=== PATIENT | female | born 1970 ===

== ENCOUNTER 2025-06-27 16:50 | Day surgery (SDC) | payer OTHER ==
[2025-06-23 12:20] VITALS: BP 121/75
[2025-06-23 12:52] LABS: BASO % 0.7 % (0.1-1.2); EOS # 0.35 (0.04-0.54); EOS % 5.7 % (0.7-7.0); LYMPH # 1.96 (1.18-3.74); LYMPH % 32.2 % (19.3-53.1); MEAN PLATELET VOLUME 10.70 fl (9.4-12.4); MONO # 0.52 (0.24-0.82); MONO % 8.5 % (4.7-12.5); NEUT # 3.21 (1.56-6.13); NEUT % 52.7 % (34.0-71.1); RED CELL DISTRIBUTION WIDTH 12.9 % (11.6-14.4)
[2025-06-23 12:57] LABS: URINE BACTERIA 313.0 uL (0.0-1933); URINE EPITHELIAL CELLS 25.2 uL (0.0-38.8); URINE RBC 12.4 uL (0.0-20.8); URINE WBC 10.3 uL (0.0-23.2)
[2025-06-23 13:03] LABS: URINE APPEARANCE Clear; URINE BILIRRUBIN Negative (NEGATIVE); URINE BLOOD Negative; URINE CAST 0.00 uL (0.0-1.40); URINE COLOR Yellow; URINE GLUCOSE Negative (NEGATIVE); URINE KETONE Negative (NEGATIVE); URINE LEUKOCYTE Negative; URINE NITRATE Negative; URINE PROTEIN Negative (NEGATIVE); URINE UROBILINOGEN 1.0 E.U./dl
[2025-06-23 13:30] LABS: ALT/SGPT 16.0 U/L (12-78); AST/SGOT 14.0 U/L (15-37); BILIRUBIN TOTAL 0.47 mg/dL (0.3-1.2); BUN CREA RATIO 22.0 (7.0-25.0); CREATININE SERUM 0.88 mg/dL (0.55-1.02); GFR 66.47; GLOBULINA 3.7 G/DL (2.4-3.5); GLUCOSE FASTING 82.0 mg/dL (65-100); OSMOLALITY SERUM 281.0 MOSM/KG (275-295)
[2025-06-23 13:54] LABS: INR 0.98
[~2025-06-27] VITALS: Ht 160 cm; Wt 65.3 kg
[~2025-06-27 16:50] MED LIST: BUPIVACAINE HCL/MPF 0.5% 30ML VIAL ONE; CIPROFLOXACIN IN 5 % DEXTROSE 400 MG/200 ML PIGGYBAG IV ONE; COZAAR50 MG PO; HORIZANT300 MG PO; HYDROCHLOROTHIA25 MG PO; LIDOCAINE HCL 1%/EPINEPHRINE 20ML VIAL IJ ONE; METFORMIN HCL1000 M2 PO; PENTOXIFYLLINE400 MG PO; POVIDONE-IODINE 118 ML BOTT TOP ONE; SIMVASTATIN20 MG PO
[2025-06-27] MEDS ORDERED: MORPHINE SULFATE 2 MG/ML CARTRIDGE IV ONE (18:05)
== END 2025-06-27 20:20 | disposition home or self-care (01) ==
LOC: CIR.AMB 16:50
PROVIDERS: ATTEND Surgery
DX: K43.6 Other and unspecified ventral hernia with obstruction, without gangrene (principal); Z88.5 Allergy status to narcotic agent
CPT/HCPCS: 49594; C1781